=== PATIENT | female | born 1980 | race Caucasian/White ===

== ENCOUNTER 2025-01-08 17:43 | Emergency (ER) | payer MEDICARE ==
[~2025-01-08] VITALS: Ht 165.1 cm; Wt 58.7 kg
[2025-01-08] MEDS: ACETAMINOPHEN 325 MG TAB PO ONE (18:09)
[2025-01-08 19:56] VITALS: PULSE 86; RESP 17; TEMP 97.8
[2025-01-08 20:03] VITALS: BP 122/76; PULSE 86; RESP 17; TEMP 97.8; O2SAT 100
== END 2025-01-08 20:05 | disposition home or self-care (01) ==
LOC: FSED 18:02
DX: M25.571 Pain in right ankle and joints of right foot (principal); M25.471 Effusion, right ankle; R45.82 Worries; W10.8XXA Fall (on) (from) other stairs and steps, initial encounter; Y93.01 Activity, walking, marching and hiking; Y92.89 Other specified places as the place of occurrence of the external cause; G35 Multiple sclerosis
CPT/HCPCS: 99284

== ENCOUNTER 2025-05-08 12:47 | Emergency (ER) | payer MEDICARE ==
[~2025-05-08] VITALS: Ht 165.1 cm; Wt 55.3 kg
[2025-05-08] MEDS: SODIUM CHLORIDE 0.9% 1000ML 1,000 ML IV STA (14:25)
[2025-05-08 14:30] LABS: BASOPHILS % 0.2 % (0.0-1.0); EOSINOPHILS % 0.2 % (0.0-6.0); LYMPHOCYTES % 10.3 % (18.0-39.1); MONOCYTES % 3.3 % (4.4-11.3); NEUTROPHILS % 85.6 % (38.7-80.0); RED CELL DISTRIBUTION WIDTH 14.4 % (11.7-14.4)
[2025-05-08 14:42] LABS: INR 1.02
[2025-05-08 14:43] LABS: LEUKOCYTE ESTERASE ,URINE NEGATIVE (NEGATIVE); PROTEIN,URINE DIPSTICK NEGATIVE (NEGATIVE); URINE UROBILINOGEN 0.2 mg/dL (0.2 - 1)
[2025-05-08 14:49] LABS: EST GLOMERULAR FILTRATION RATE 111 ML/MIN (>=60)
[2025-05-08 14:52] LABS: STREPTOCOCCUS GRP A ANTIGEN NEGATIVE (NEGATIVE)
[2025-05-08 14:58] LABS: CORONAVIRUS COVID-19 AG NEGATIVE (NEGATIVE)
[2025-05-08 14:59] LABS: EPITHELIAL CELLS,URINE MODERATE /LPF; WBC,URINE (MAN) 0-5 /HPF (0-5)
[2025-05-08] MEDS: IBUPROFEN 600 MG TAB PO ONE (15:48)
[2025-05-08] MEDS: ONDANSETRON HCL INJ 2MG/ML 2ML 2 MG/ML VIAL IV STA (15:48)
[2025-05-08] MEDS: SODIUM CHLORIDE 0.9% 500ML 500 ML IV ONE (15:48)
[2025-05-08] MEDS: HYDROMORPHONE 1MG/1ML INJ IV STA (15:49)
[2025-05-08] MEDS ORDERED: ONDANSETRON ODT4 MG PO (16:41)
[2025-05-08 17:10] VITALS: PULSE 89; RESP 18; TEMP 98.2; O2SAT 99
== END 2025-05-08 17:01 | disposition home or self-care (01) ==
LOC: ER 13:26
DX: R50.9 Fever, unspecified (principal); B34.9 Viral infection, unspecified; R53.81 Other malaise; G35.D Multiple sclerosis, unspecified; Z11.52 Encounter for screening for COVID-19
CPT/HCPCS: 36415; 70450; 71045; 80053; 81001; 83518; 83735; 84484; 84702; 85025; 85610; 85730; 87040; 87070; 87086; 87428; 99284; J1171; J2405; J7030; J7040